=== PATIENT | male | born 1960 | race Caucasian/White ===

== ENCOUNTER 2023-04-21 06:05 | Day surgery (SDC) | payer MEDICARE, OTHER, MEDICAID, SELFPAY ==
[2023-04-21 06:28] VITALS: BP 116/73; PULSE 74; RESP 18; TEMP 36.1; O2SAT 98; BMI 32.5
[2023-04-21 06:38] LABS: Glucose, Whole Blood 127 mg/dL (60-115)
[2023-04-21] MEDS: Lactated Ringers 1,000 ML 100 ML IVCONT (06:47)
--- NOTE | 2023-04-21 07:15 | HO.ANESPROP2 ---
Documented by User: Angi Pedroza NP 04/17/23 11:44 HPI - Anesthesia Eval Consult details Narrative: 63yo M for Upper Endoscopy and Colonoscopy Pt on semaglutide weekly injection for DM. Last dose Thursday04/11/23. Instructed to hold 04/18/23 dose. [facility] Past Medical History Medical History Bipolar disorder Diabetes GERD (gastroesophageal reflux disease) Sleep apnea Surgical History Surgical History History of hip surgery Hx of colonoscopy Social History Social History Patient Tobacco Use Status: Former Tobacco user Use of substances other than those prescribed or required for medical reasons: No Advance Directives: No Advance Directives Information Provided: Yes Meds Allergies Allergy/AdvReac Type Severity Reaction Status Date / Time amoxicillin Allergy Unknown Verified 04/17/23 06:43 codeine Allergy Unknown Verified 04/17/23 06:43 Home Medications Medication Instructions Recorded Confirmed Last Taken Type aspirin 81 mg tablet,delayed 81 mg PO DAILY 04/17/23 04/17/23 04/11/23 History release citalopram 40 mg tablet 40 mg PO DAILY 04/17/23 04/17/23 Unknown History empagliflozin 5 mg-metformin 500 1 tab PO BID 04/17/23 04/17/23 Unknown History mg tablet (Synjardy) lithium carbonate 300 mg mg PO 04/17/23 Unknown History tablet,extended release pantoprazole 40 mg tablet,delayed 40 mg PO DAILY 04/17/23 04/17/23 Unknown History release semaglutide 2 mg/dose (8 mg/3 mL) 2 mg subcut QWEEK 04/17/23 04/17/23 04/11/23 History subcutaneous pen injector (Ozempic) trazodone 50 mg tablet 75 - 100 mg PO BEDTIME PRN insomnia 04/17/23 04/17/23 Unknown History Exam Exam Date and Time: April 17, 2023 104 Assessment and Plan Assessment Anesthesia Assessment: Chart Reviewed Documented by User: Danna Gomez DO 04/21/23 07:18 HPI - Anesthesia Eval Consult details Narrative: 63yo M for Upper Endoscopy and Colonoscopy Pt on semaglutide weekly injection for DM. Last dose Thursday04/11/23. PMFSH Past Medical History Medical History Bipolar disorder Diabetes GERD (gastroesophageal reflux disease) Sleep apnea Family History Family history of problems with anesthesia: No Surgical History Surgical History History of hip surgery Hx of colonoscopy History of Problems with Anesthesia: No Social History Social History Patient Tobacco Use Status: Former Tobacco user Use of substances other than those prescribed or required for medical reasons: No Advance Directives: No Advance Directives Information Provided: Yes Meds Allergies Allergy/AdvReac Type Severity Reaction Status Date / Time amoxicillin Allergy Unknown Verified 04/17/23 06:43 codeine Allergy Unknown Verified 04/17/23 06:43 Home Medications Medication Instructions Recorded Confirmed Last Taken Type aspirin 81 mg tablet,delayed 81 mg PO DAILY 04/17/23 04/17/23 04/11/23 History release citalopram 40 mg tablet 40 mg PO DAILY 04/17/23 04/17/23 Unknown History empagliflozin 5 mg-metformin 500 1 tab PO BID 04/17/23 04/17/23 Unknown History mg tablet (Synjardy) lithium carbonate 300 mg mg PO 04/17/23 Unknown History tablet,extended release pantoprazole 40 mg tablet,delayed 40 mg PO DAILY 04/17/23 04/17/23 Unknown History release semaglutide 2 mg/dose (8 mg/3 mL) 2 mg subcut QWEEK 04/17/23 04/17/23 04/11/23 History subcutaneous pen injector (Ozempic) trazodone 50 mg tablet 75 - 100 mg PO BEDTIME PRN insomnia 04/17/23 04/17/23 Unknown History Exam Exam Date and Time: April 21, 2023714 Height,Weight and Vital Signs: Height 6 ft 3 in Weight 117.934 kg Vital Signs Temperature 96.9 F 04/21/23 06:28 Pulse Rate 74 04/21/23 06:28 Respiratory Rate 18 04/21/23 06:28 Blood Pressure 116/73 04/21/23 06:28 Pulse Oximetry 98 04/21/23 06:28 Oxygen Delivery Method Room Air 04/21/23 06:28 Temperature 96.9 F 04/21/23 06:28 Pulse Rate 74 04/21/23 06:28 Respiratory Rate 18 04/21/23 06:28 Blood Pressure 116/73 04/21/23 06:28 Pulse Oximetry 98 04/21/23 06:28 Oxygen Delivery Method Room Air 04/21/23 06:28 Airway Mallampati Class: I TM Dist: >3cm Neck ROM: Full Loose/Missing/Broken Teeth: No Heart: S1S2 Lungs: CTAB Assessment and Plan Assessment Anesthesia Assessment: Anesthesia Plan Discussed and Chart Reviewed Final Anesthetic Review Family History of Problems with Anesthesia: No History of Problems with Anesthesia: No NPO: Yes ASA Class: II Final Preanesthetic Review: No Changes in Pt Med Stat, Meds/Allgs Chart Reviewed, Consent Obtained/Reviewed and Anes Risks/Benef Reviewed Patient Risk: Low Procedure Risk: Low Anesthetic Plan Anesthetic Plan: MAC: and Agree w/ Assess. and Plan Disposition: Standard PACU
--- NOTE | 2023-04-21 07:22 | MHC.SHP ---
Pre-Procedural Eval Section A Date of Service: 04/21/23 Section B Chief Complaint: reflux disease,screening Details of Present Illness: see H&P no changes Relevant Family History (Specify if Yes): No Relevant Social History: None Present Medications: see Short Stay Collaborative assessment Medical History: No relevant PMH Allergies: Allergies Allergy/AdvReac Type Severity Reaction Status Date / Time amoxicillin Allergy Unknown Verified 04/17/23 06:43 codeine Allergy Unknown Verified 04/17/23 06:43 Review of Systems Sugical H&P ROS: Negative: Constitution, Cardiovascular, Respiratory, Neurological, Psychiatric, Hem-Onc, Allergic/Immunologic, Gastrointestinal, Genitourinary, Musculoskeletal, Integumentary, Endocrine and Eyes/Ears/Nose/Throat Exam Surgical H&P Exam: Normal: HEENT, Normal: Heart, Normal: Lungs, Normal: Extremities, Normal: Abdomen, Normal: Skin and Normal: Neurological Plan Diagnosis/Plan: Unchanged I have reviewed the history and physical and performed a pertinent physical examination on my patient. No changes have occurred unless specified. Time Spent With Patient Time: Total time managing care of this patient today ____ minutes.
--- NOTE | 2023-04-21 08:15 | P.BOP_ITS ---
Brief Operative Note Date of Service: 04/21/23 Pre-op diagnosis: gerd screening Post-op diagnosis: same Procedure: egd colon Surgeon: Laurent Robertson Anesthesia: MAC Was an Roofing Sales Representative used for this Procedure?: No Estimated blood loss (mL): 5 Pathology: other Condition: stable Disposition: PACU
[2023-04-21 08:20] VITALS: BP 98/50; PULSE 72; RESP 20; TEMP 36.6; O2SAT 92
[2023-04-21 08:43] VITALS: BP 103/69; PULSE 63; RESP 17; TEMP 36.1; O2SAT 94
--- NOTE | 2023-04-21 09:00 | OP_ITS ---
DATE OF SERVICE: 04/21/2023 SURGEON: Laurent Robertson MD INDICATIONS: 1. Gastroesophageal reflux disease. 2. Colon cancer screening. PREOPERATIVE DIAGNOSIS: POSTOPERATIVE DIAGNOSIS: PROCEDURE PERFORMED: Upper endoscopy with biopsy, colonoscopy to the cecum with snare polypectomy. ESTIMATED BLOOD LOSS: COMPLICATIONS: ANESTHESIA: Monitored anesthesia care. ASSISTANTS: SPECIMENS: DESCRIPTION OF PROCEDURE: A history and physical was performed. The risks and benefits of the procedure were explained to the patient. Informed consent was obtained. The patient was placed in the left lateral decubitus position. The Olympus video gastroscope was introduced into the esophagus, stomach, and duodenum. Examination was performed. The scope was removed. He tolerated the procedure well. He was repositioned for colonoscopy. A digital rectal exam was performed and was found to be normal. The Olympus pediatric video colonoscope was introduced into the rectum and advanced to the cecum without difficulty. The cecum was identified by transillumination, palpation, and identification of ileocecal valve. Examination was performed. The scope was removed. He tolerated both procedures well and was returned to the recovery area in stable condition. FINDINGS: Upper endoscopy: 1. Esophagus: There was a 1 cm area of possible Beebe esophagus just at the EG junction, which was biopsied. There were no ulcerated areas or raised lesions. There was a small hiatal hernia. 2. Stomach: The stomach was normal. The antral biopsies were obtained. 3. Duodenum: The bulb and 2nd portion were normal. Colonoscopy: The terminal ileum was not examined. The visualized colonic mucosa was normal. There was a large amount of undigested food material in stool, limited the sensitivity examination for detection of small polyps. This was washed and suctioned as best possible. This was particularly present in the right colon and sigmoid colon. Multiple colonic polyps were present, all were less than 10 mm, and were removed with the cold snare. These were located at 50 cm, 45 cm the cecum, and 2 at 40 cm. Retroflexed examination showed small internal hemorrhoids. IMPRESSION: 1. Gastroesophageal reflux disease. 2. Colon polyps. RECOMMENDATION: Follow up the biopsy results. MD KEIRA Mendieta/ANGELESL / [id number]
== END 2023-04-21 09:01 | disposition home or self-care (01) ==
PROVIDERS: PCP Internal Medicine; Visit Provider Internal Medicine Gastroenterology
PROC: (CPT 45385; principal; 2023-04-21 07:30)
DX: Z12.11 Encounter for screening for malignant neoplasm of colon (principal); D12.0 Benign neoplasm of cecum; D12.5 Benign neoplasm of sigmoid colon; K64.8 Other hemorrhoids; Z86.010 Personal history of colon polyps; K21.9 Gastro-esophageal reflux disease without esophagitis; K44.9 Diaphragmatic hernia without obstruction or gangrene; E11.9 Type 2 diabetes mellitus without complications; G47.33 Obstructive sleep apnea (adult) (pediatric); Z87.891 Personal history of nicotine dependence; Z79.899 Other long term (current) drug therapy
CPT/HCPCS: 45385; 43239; 82947; 88305; 88342; J2371